=== PATIENT | female | born 1945 | race Caucasian/White ===

== ENCOUNTER → 2023-08-08 06:59 | Outpatient (REF) | payer MEDICARE, BC, SELFPAY ==
[2023-08-08] MEDS: LEXISCAN 0.400000000000000022 MG IV (08:50)
== END ==
LOC: RCS 06:59
PROVIDERS: ATTENDING PHYSICIAN Internal Medicine Interventional Cardiology; FAMILY PHYSICIAN Family Medicine
DX: I10 Essential (primary) hypertension (principal); E78.00 Pure hypercholesterolemia, unspecified; R94.39 Abnormal result of other cardiovascular function study
CPT/HCPCS: 78452; 93017; A9500; J2785

== ENCOUNTER 2023-09-03 06:27 | Day surgery (SDC) | payer MEDICARE, BC, SELFPAY ==
--- NOTE | 2023-07-30 09:29 | CM ---
Patient is scheduled for an elective L TKR on 09/03/23- she is a same day patient. Spoke with patient prior to surgery. Introduced role of Orthopedic Navigator. Patient reports that she lives alone in a two story home. There are three steps to enter
and a flight of steps to the second floor. She currently functions independently. She has a cane (which she uses when she goes out of the house) and two raised toilet seats with rails. She has had [facility] services through [facility]. PCP is Nae Manuel.
Discussed orthopedic program and post surgical plans. Reviewed that she will have VN services initially (medicare.gov website and ratings reviewed) and will then start outpatient PT. Patient selects [facility] (face sheet faxed to [facility] to facilitate
confirmation of benefits) for her home care needs and will go to [facility] for outpatient PT.
Patient is in agreement with plan and states that her son will be home with her.
Patient will complete online education.
Plan: Orthopedic Navigator will remain available to assist with the care of patient and will reassess discharge needs after surgery.
[2023-08-13 14:05] VITALS: BMI 34.8
[2023-08-13 14:26] LABS: Hematocrit 35.6 % (37.0-47.0); Hemoglobin 12.3 g/dL (12.0-16.0); Mean Corp Hgb Conc. 34.6 g/dL (33.0-37.0); Mean Corpuscular Volume 89.7 fL (81.0-99.0); Mean Platelet Volume 9.9 fL (7.4-10.4); Platelet Count 273 10^3/uL (130-400); Red Blood Cell Count 3.97 10^6/uL (4.20-5.40); Red Cell Dist. Width 12.9 % (11.5-14.5); White Blood Cell Count 7.2 10^3/uL (4.8-10.8)
[2023-08-13 14:38] LABS: ALT (SGPT) 18 U/L (0-35); AST (SGOT) 23 U/L (14-36); Alkaline Phosphatase 51 U/L (38-126); Blood Urea Nitrogen 22 mg/dl (7-17); Calcium 9.9 mg/dl (8.4-10.2); Carbon Dioxide 29 mmol/L (22-30); Chloride 103 mmol/L (98-107); Estimated Creatinine Clearance 59 ml/min; Glucose 104 mg/dl (70-99); Potassium 4.8 mmol/L (3.5-5.1); Sodium 138 mmol/L (135-145); Total Bilirubin 0.7 mg/dl (0.2-1.3); eGFR 58.02
[2023-08-13 16:38] VITALS: BMI 34.8
[2023-08-14 08:24] LABS: Glycohemoglobin (HgbA1c) 7.1 % (4.0-5.6)
[2023-09-03] VITALS (10 sets, daily range): BP systolic 112–144; BP diastolic 54–79
[2023-09-03] MEDS: MOBIC 15 MG PO (06:25)
[2023-09-03] MEDS: TYLENOL 650 MG PO (06:25)
[2023-09-03] MEDS: DILAUDID 0.25 MG IV ×2 (08:48→09:01)
--- NOTE | 2023-09-03 10:00 | CM ---
Patient had planned L TKR today. Met with patient and her son at bedside to review discharge plans. Patient will be returning home today with services through [facility]. On , 09/05, patient will start outpatient PT at [facility].
Reviewed MD follow up in two weeks and patient is aware of need to schedule appointment.
Patient has her rolling walker here with her.
PT and [facility] were kept updated as to progress and discharge plans.
[2023-09-03] MEDS: ANCEF 5 IV (10:55)
== END 2023-09-03 11:19 | disposition home health service (06) ==
LOC: SDS 06:27
PROVIDERS: ATTENDING PHYSICIAN Specialist; FAMILY PHYSICIAN Family Medicine; OTHER PHYSICIAN Nuclear Medicine Nuclear Cardiology; OTHER PHYSICIAN Physician Assistant
DX: M17.12 Unilateral primary osteoarthritis, left knee (principal); E66.9 Obesity, unspecified; Z68.34 Body mass index [BMI] 34.0-34.9, adult; I36.1 Nonrheumatic tricuspid (valve) insufficiency; E11.9 Type 2 diabetes mellitus without complications; M51.36 Other intervertebral disc degeneration, lumbar region; Z96.651 Presence of right artificial knee joint
CPT/HCPCS: 27447; 36415; 73560; 80053; 83036; 85027; 87070; 97162; C1713; C1776